=== PATIENT | male | born 1960 | race Caucasian/White ===

== ENCOUNTER 2018-08-17 19:06 | Emergency (ER) | payer OTHER ==
--- NOTE | 2018-08-17 19:16 | EDPHY ---
HPI/HX/ROS/PE/MDM Narrative: CHIEF COMPLAINT: Reaction to local anesthetic HPI: This patient is a 57-year-old male arriving via EMS for evaluation of a possible allergic reaction. He was at [facility] today, had topical numbing medication as well as a dental block (Articaine HCL 4% with epinephrine) applied for an extraction procedure. About 30-60 seconds after this, he developed difficulty breathing and increased secretions in his airway. He complains of a hoarse voice and difficulty speaking. At office, he felt his throat was entirely full of phlegm. Now, his symptoms are largely resolving and are at about 40% of their severity on EMS arrival. He continues to have difficulty speaking due to numbness in his jaw and tongue and continues to note increased airway secretions. He additionally notes the numbness spreads up to eye level, which is unusual compared to prior dental procedures. He denies any chest pain, nausea, vomiting, pruritic rash, tongue or lip swelling, headache or other associated symptoms. REVIEW OF SYSTEMS: A comprehensive 10 system review of systems is otherwise negative aside from elements mentioned in the history of present illness and medical decision making. PMH: Ankylosing spondylitis. SOCIAL HISTORY: Lives in [place]. 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 Does not abuse tobacco, drugs, or alcohol. PHYSICAL EXAM: General:Patient is alert, in no acute distress. He is texting. 99% SpO2 on room air. ENT:Eyes are normal to inspection. Mild palate asymmetry. Neck: Normal inspection. Full range of motion. Respiratory:No respiratory distress. Breath sounds normal bilaterally. Cardiovascular: Regular rate and rhythm. Strong peripheral pulses. Normal cap refill. Abdomen:The abdomen is nontender to palpation. There are no peritoneal signs. There are normal bowel sounds. Back: Normal to inspection. No tenderness to palpation. Skin: Normal color. No rash. Warm and dry. Extremities: Normal appearance. Full range of motion. Neuro: Oriented x3. Normal motor function. Normal sensory function. ED Course: 19:07 [facility] on arrival. 57 year old male presents following an adverse reaction to local anesthetic during a dental procedure. He complains of difficulty speaking and swallowing due to increased secretions and mouth/tongue numbness as well as a hoarse voice. He states his symptoms have resolved considerably since onset and are at about 40% of their original severity. His SpO2 is 98% on room air. Plan for observation. No urticaria, flushing, or angioedema. Reviewed side effects of Articaine HCl with epinephrine. There are documented cases of similar symptoms including hoarseness, difficulty breathing, and dysphagia secondary to laryngeal edema and bronchospasm following inferior alveolar nerve block. (Cases summarized in "An Unusual Laryngeal Complication Following Inferior Alveolar Nerve Block" [email or web address] ) Patient's symptoms are not consistent with allergic reaction. No urticaria or other rash, no angioedema. His symptoms are resolving. Plan for PO challenge. Patient tolerated PO challenge. He feels his symptoms have resolved and would like to go home. Plan to discharge home in good condition. Follow up and return precautions discussed. He is comfortable with this plan. MDM: This patient presents with very unusual story of severe airway compromise apparently secondary to local anesthetic infiltration as part of a dental procedure. On arrival, patient was in moderate respiratory distress but maintaining a normal oxygen saturation. He has no systemic signs of allergic reaction whatsoever and there is no clear obstructive process in his posterior oropharynx. The patient rapidly resolved over the next hour in the ER and he regained a normal voice, was breathing without any difficulty and was able to drink water normally as well. Given rapid onset and resolution of symptoms, highly suspect that this represents inadvertent administration of the local anesthetic to the recurrent laryngeal nerve or other neurovascular region that may have caused either laryngospasm or mild temporary paralysis. The patient tells me that he was treated with chewable aspirin during this episode, which also likely exacerbated symptoms as the patient was having difficulty swallowing at that time as well. I do not think the patient has a true allergy to local anesthetics but told him that he needs to undergo further evaluation for this before receiving local anesthetics, particularly for dental procedures in the future. General Initial Vital Signs: Initial Vital Signs Temperature (C) 36.8 C 08/17/18 19:05 Heart Rate 78 08/17/18 19:05 Respiratory Rate 17 08/17/18 19:05 Blood Pressure 147/101 H 08/17/18 19:05 O2 Sat (%) 100 08/17/18 19:05 O2 Delivery Mode Room Air O2 (L/minute) 2 Allergies/Adverse Reactions: No Known Allergies Allergy (Unverified 08/17/18 19:19) Home Medications: Medication Instructions Recorded NK [No Known Home Meds] 08/17/18 Departure - Departure Disposition: Home, Routine, Self-Care Clinical Impression: Laryngeal complications of [place] block, Laryngospasm Condition: Good Instructions: Laryngospasm (DC) Additional Instructions: Follow up with your primary care provider in 2-3 days. Return for recurrence of symptoms, difficulty breathing, talking, or swallowing , or other worsening of condition or further concerns. Referrals: Saurabh Haas MD [[facility] Primary Care Provider] - As per Instructions Report Scribed for: Min Croft Report Scribed by: Xochilt Tee Date of Report: 08/17/18 Time of Report: 21:02 Physician Review and Approval Statement: Portions of this note were transcribed by an ED scribe. I personally performed the history, physical exam, and medical decision making; and confirm the accuracy of the information in the transcribed note.
[2018-08-17 20:06] VITALS: BP 117/86
== END 2018-08-17 20:20 | disposition home or self-care (01) ==
LOC: EDUNIT#
DX: T78.49XA Other allergy, initial encounter (principal); J38.5 Laryngeal spasm